=== PATIENT | female | born 1960 | race Caucasian/White ===

== ENCOUNTER 2016-11-08 10:44 | Day surgery (SDC) | payer BC ==
--- NOTE | 2016-10-19 14:50 | HP ---
Chief Complaint - Chief Complaint Date of Service: 10/19/16 Chief Complaint: pills getting stuck History of Present Illness: 56 yo female who has progreesive dysphagia and pills and food getting stuck or "hanging up" in the upper chest/esophagus. She has had a video swallowing study (essentially normal) and was seen by ENT who did nasopharyngoscopy and was told it was also normal. Here for an EGD. Sees Dr Stone. IS a smoker. Never has to vomit up the pills or food, but sometimes needs to swallow extra water. Hx of GERD and is on Prilosec (for 4 years) and she has no family history of esophageal cancer. Also has some hoarseness, occasional coughing, but minimal wheezing. No SOB. Hx of allergic rhinitis. - Patient's Past Medical History Patient History - Medical: Anemia, Arthritis, Depression, Fibromyalgia Patient History - Cardiac/Respiratory: Hypertension, Hyperlipidemia Patient History - Cancer: No Hx of Cancer Patient History - Surgical Procedures: Colonoscopy, , T & A, Other - TAHBSO - Family History Family History:: no untoward family reactions to anesthesia, no familial bleeding tendencies, no family history of clotting disorders - Family History Mother Family History - Medical: Arthritis Family History - Cardiac/Respiratory: Hypertension Father Family History - Cardiac/Respiratory: Coronary Heart Disease, Other - pacemaker - Social History Living Situations: spouse Abuse History: No History of abuse Psych History: No pertinent hx Does anyone smoke in the home?: Yes Smoking Status: Current every day smoker Have you smoked in the past 12 months: Yes Patient requests Smoking Cessation Consult: No Initiate information on Smoking Cessation: Yes Alcohol Use: rarely Drug Use: none - Immunizations Immunizations Up to Date: Yes - thinks they are up to date Hx Pneumococcal Vaccination: No History of Influenza Vaccine: No Review Of Systems (GEN) - Review of Systems Generalized/Overall Review: Absent: Fatigue, Weight loss, Weight gain EENTM: Present: Nose Congestion. Absent: Tearing, Ear Discharge, Throat Pain, Throat Swelling Respiratory: Present: Cough. Absent: Shortness of Breath, Stridor, Wheezing Cardiac: Absent: Chest Pain, Edema Abdominal: Present: Other - see HPI. Absent: Nausea, Vomiting, Abdominal Pain, Constipation Genitourinary: Present: No Symptoms Reported Musculoskeletal: Present: Joint Pain, Joint Swelling Neurological: Absent: Headache, Emotional Problems, Numbness, Parasthesia Skin: Absent: Dryness, Rash Allergies/Adverse Reactions: Allergies Allergy/AdvReac Type Severity Reaction Status Date / Time Sulfa (Sulfonamide Allergy Hives Verified 10/19/16 14:40 Antibiotics) amoxicillin [Amoxicillin] AdvReac Mild Hives Verified 02/10/14 12:55 lisinopril AdvReac Mild FEELS LIKE Verified 02/10/14 12:55 "ELEPHANT SITTING ON CHEST" Home Medications: HOME MEDICATIONS Metoprolol Succinate [Toprol Xl] 25 mg PO DAILY 02/10/14 [Last Taken Unknown] Montelukast Sodium [Singulair] 10 mg PO DAILY 02/10/14 [Last Taken Unknown] Cetirizine HCl 10 mg PO DAILY 10/19/16 [Last Taken Unknown] Omeprazole 40 mg PO DAILY 10/19/16 [Last Taken Unknown] Venlafaxine HCl [Venlafaxine HCl ER] 225 mg PO DAILY 10/19/16 [Last Taken Unknown] traMADol HCL [Ultram] 50 mg PO QID PRN 10/19/16 [Last Taken Unknown] Exam - Exam Vital Signs: Vital Signs - Last Taken Temp 36.8 Pulse 80 Resp 16 BP 130/75 Pulse Ox Constitutional: Present: Alert, Oriented x3, Cooperative, No distress ENT Exam: Present: hearing grossly normal Eye Exam: bilateral eye: normal inspection Neck: Present: non-tender, supple, normal inspection, trachea midline. Absent: lymphadenopathy (R), lymphadenopathy (L), thyromegaly Breasts: Present: Exam deferred Respiratory: Present: lungs clear, no respiratory distress, no accessory muscle use, rales - mild. Absent: wheezing Cardiovascular/Chest: Present: regular rate, rhythm, no edema, no murmur Abdomen: Present: Normal bowel sounds, soft, nontender /Rectal: Present: Exam deferred Extremity: Present: no pedal edema Skin Exam: Present: normal color, warm/dry, no cyanosis Neurologic: Present: alert, normal mood/affect. Absent: abnormal gait, motor weakness, depressed affect Appearance: Present: appropriate appearance, appropriate insight, neat, no memory impairment Eye contact: Present: cooperative, good eye contact, normal speech Thoughts: Present: normal thought pattern, no apparent hallucination Assessment/Plan - Assessment/Plan (1) Smoker unmotivated to quit Problem: Chronic (2) Dysphagia Assessment: Will schedule the EGD at her convenience to further evaluate this dysphagia. RBIC discussed. Problem: Acute Qualifiers: Dysphagia type: unspecified Qualified Code(s): R13.10 - Dysphagia, unspecified (3) Asthma Problem: Chronic Qualifiers: Asthma severity: mild persistent (4) Arthritis Problem: Chronic
[~2016-11-08 10:44] MED LIST: RINGERS SOLUTION,LACTATED 1,000 ML IV PRN
--- NOTE | 2016-11-08 11:02 | OR ---
Operative Report - Dictated Report Narrative: DATE: 11/08/2016 PREOPERATIVE DIAGNOSIS: Dysphagia POSTOPERATIVE DIAGNOSIS: same PROCEDURE: ESOPHAGOGASTRODUODENOSCOPY with biopsy SURGEON: Boni Abdi M.D. [facility] ANESTHESIA: Familia Richards CRNA SEDATION INDICATIONS. This is a 56-year-old female who presents with a history of dysphagia, with workup negative thus far including swallow and ENT evaluation. Risk, benefits, indications contra indications were discussed for an EGD with possible biopsy and patient understood and agreed and wished to proceed. Procedure: The patient was brought into the operating room theater and placed into the left lateral decubitus position. A bite block was placed and she was given sedation per SH[facility]. After adequate sedation was obtained, the [employer] for [employer] video gastroscope was introduced and advanced into the pharynx. This appeared to be normal. The vocal cords were seen to be normal. Scope is advanced into the esophagus under direct visualization. The scope was advanced through the esophagus, which was otherwise unremarkable. The GE junction was noted at approximately 38 cm. The scope was advanced through the GE junction into the stomach. There is obvious hiatal hernia noted. The stomach had a relatively normal appearance with mild to moderate antritis. His taken. There was no obvious signs of recent or old bleeding, no signs of ulceration, and there was no obvious abnormalities noted within the stomach body or antrum. Scope was then advanced through the pyloric channel was also mildly inflamed, and as I advanced into the second and third portions of the duodenum there were many small superficial ulcerations. Multiple pictures were taken. He was taken. The scope was then withdrawn slowly. Biopsy of the antrum was taken for H. pylori or pathological diagnosis. The scope was retroflexed and pictures were taken. Scope was then removed slowly through the stomach and, ultimately at the GE junction, the stomach was decompressed. The GE junction was examined closely. Pictures were taken. I readvanced through this area, and did not see a stricture or reason for dysphagia. The scope was then removed through the otherwise normal-appearing esophagus. Once the scope was removed completely, the patient was awakened and taken to the ambulatory surgery center in stable condition. POSTOPERATIVE CONDITION: Patient is in good postoperative condition. No apparent complications. FINDINGS: Mild to moderate antritis with mild duodenitis, biopsies pending. H. pylori pending. EBL: None SPECIMENS: two to pathology and and for H. pylori Findings were discussed with the patient. We will call with the results of the biopsies when we receive them. If she has persistent symptoms, I think the next step would be a formal upper GI and possible manometry testing. Please send a copy of this to Dr. Stone.
[2016-11-08] MEDS ORDERED: RINGERS SOLUTION,LACTATED 1,000 ML IV PRN (11:42)
[2016-11-08 12:41] VITALS: BP 118/84
== END 2016-11-08 10:45 | disposition home or self-care (01) ==
LOC: AMB 10:44
PROVIDERS: ATTEND Surgery
PROC: 0DB68ZX Excision of Stomach, Via Natural or Artificial Opening Endoscopic, Diagnostic (ICD-10-PCS; principal; 2016-11-08 10:30)
DX: K26.9 Duodenal ulcer, unspecified as acute or chronic, without hemorrhage or perforation (principal); K44.9 Diaphragmatic hernia without obstruction or gangrene; K29.70 Gastritis, unspecified, without bleeding; I10 Essential (primary) hypertension; E78.5 Hyperlipidemia, unspecified; D64.9 Anemia, unspecified; F32.9 Major depressive disorder, single episode, unspecified; F17.200 Nicotine dependence, unspecified, uncomplicated; Z68.24 Body mass index [BMI] 24.0-24.9, adult